=== PATIENT | female | born 1945 | race Caucasian/White ===

== ENCOUNTER 2017-10-15 11:25 | Emergency (ER) | payer MEDICARE ==
[2017-10-15 11:57] LABS: Bacteria/HPF None Seen HPF (None Seen); Bilirubin Small (Negative); Blood, Urine Negative (Negative); Glucose, Urine (Dipstick) Negative (Negative); Leukocyte Negative (Negative); Nitrite Negative (Negative); Protein, Urine (Dipstick) 30 mg/dL (Neg-Trace); RBC/HPF 0-3 HPF (0-3); Specific Gravity, Urine 1.015 (1.005-1.030)
[2017-10-15 11:59] LABS: Pathc Cast-AUWi Flag 4.79 (0-2.49)
[2017-10-15 12:00] LABS: Clarity Clear (Clear)
[2017-10-15 12:07] LABS: Crystals/HPF None Seen HPF (Negative); Hyaline Casts/LPF 4-6 HYALINE CAST LPF (0-3 Hyaline); Other Casts/LPF None Seen LPF (0-3 Hyaline)
[2017-10-15] MEDS ORDERED: Ondansetron HCl/PF 4 MG/2 ML Vial ONE (12:27)
[2017-10-15 12:53] LABS: #Eosinphils 0.1 thou/uL (0.0-0.7); #Lymphocytes 1.3 thou/uL (1.20-3.40); #Monocytes 0.5 thou/uL (0.11-0.59); #Neutrophils 5.6 thou/uL (1.40-6.50); %Basophils 0.2 % (0.0-1.0); %Eosinophils 1.4 % (0.0-10.0); %Lymphocytes 17.2 % (21.0-51.0); %Monocytes 6.3 % (0.0-10.0); %Neutrophils 74.9 % (42.0-75.0); Hemoglobin 13.2 g/dL (12.0-16.0); Mean Corpuscular HGB CONC 36.3 g/dL (32.0-36.0); Mean Corpuscular Hemoglobin 34.2 pg (27.0-31.0); Mean Corpuscular Volume 94.2 fL (78.0-98.0); Mean Platelet Volume 8.5 fL (7.4-10.4); Platelet Count 139 thou/uL (130-400); RBC Distribution Width 11.1 % (11.5-14.5); Red Blood Cell (RBC) Count 3.87 mill/uL (4.20-5.40); White Blood Cell (WBC) Count 7.5 thou/uL (4.8-10.8)
[2017-10-15 14:10] LABS: ALT (SGPT) 13 U/L (8-55); AST (SGOT) 12 U/L (5-34); Alkaline Phosphatase 61 U/L (40-150); Anion Gap 14 mmol/L (10-20); BUN (Urea Nitrogen) 20 mg/dL (9.8-20.1); Calc. Creatinine Clearance 0 mL/min (70-130); Calcium 9.1 mg/dL (7.8-10.44); Carbon Dioxide 25 mmol/L (23-31); Chloride 108 mmol/L (98-107); Estimated GFR-MDRD 59; Globulin 2.5 g/dL (2.4-3.5); Glucose 99 mg/dL (83-110); Lipase 54 U/L (8-78); Potassium 4.3 mmol/L (3.5-5.1); Protein, Total 6.5 g/dL (6.0-8.3); Sodium 143 mmol/L (136-145)
--- NOTE | 2017-10-17 14:51 | EKG ---
Test Reason : Blood Pressure : / mmHG Vent. Rate : 071 BPM Atrial Rate : 071 BPM P-R Int : 122 ms QRS Dur : 150 ms QT Int : 476 ms P-R-T Axes : 026 -52 098 degrees QTc Int : 517 ms Atrial-sensed ventricular-paced rhythm Biventricular pacemaker detected Abnormal ECG Confirmed by AMARIS GREENE ([id number]), editor book ISMAEL LUNA ([id number]) on 10/17/2017 2:51:12 PM Referred By: Confirmed By:AMARIS GREENE
== END 2017-10-15 15:15 | disposition home or self-care (01) ==
LOC: ERS 11:25
DX: E86.0 Dehydration (principal)
CPT/HCPCS: 36415; 80053; 81003; 81015; 83690; 85025; 93005; 96361; 96374; J2405

== ENCOUNTER 2018-03-07 15:16 | Outpatient (CLI) | payer MEDICARE ==
--- NOTE | 2018-03-07 16:18 | RAD ---
CHEST TWO VIEWS: 03/07/18 HISTORY: Defibrillator change. COMPARISON: 09/20/15. FINDINGS: Cardiac silhouette is magnified by projection. Pulmonary vasculature is unremarkable. Mediastinum is midline with aortic calcification and a three lead left subclavian cardiac electronic device. No evid ence of pleural fluid or pneumothorax. Degenerative changes of the thoracic spine on the lateral view . IMPRESSION: Left subclavian cardiac electronic device is in place. No evidence of complication. POS: [facility]
== END 2018-03-07 15:17 | disposition home or self-care (01) ==
LOC: BICRAD 15:16
PROVIDERS: ATTEND Specialist
DX: R76.11 Nonspecific reaction to tuberculin skin test without active tuberculosis (principal); Z95.810 Presence of automatic (implantable) cardiac defibrillator
CPT/HCPCS: 71046

== ENCOUNTER 2018-03-27 09:27 | Outpatient (CLI) | payer MEDICARE ==
--- NOTE | 2018-03-27 10:08 | RAD ---
TWO VIEWS CHEST: Comparison: 03-07-18 History: Dyspnea. FINDINGS: Two views of the chest shows normal sized cardiomediastinal silhouette. The pacemaker is unchanged in position. There is no evidence of consolidation, mass, or pleural effusion. Degenerative changes are seen in the spine. IMPRESSION: No evidence of acute cardiopulmonary disease. POS: [facility]
== END 2018-03-27 09:28 | disposition home or self-care (01) ==
LOC: RAD 09:27
PROVIDERS: ATTEND Internal Medicine Critical Care Medicine
DX: R06.00 Dyspnea, unspecified (principal)
CPT/HCPCS: 71046